=== PATIENT | female | born 1935 | race Caucasian/White ===

== ENCOUNTER 2022-04-19 17:10 | Emergency (ER) | payer OTHER ==
[2022-04-19 17:25] VITALS: BP 105/54; PULSE 77; RESP 20; TEMP 97.8; BMI 21.6
[2022-04-19] MEDS ORDERED: SODIUM CHLORIDE 0.9% 500 ML INFUS.BAG IV ONE (18:31)
[2022-04-19 18:48] LABS: BASO % 0.3 % (0-2.0); EOS % 1.5 % (0-4.5); HEMOGLOBIN 9.9 GM/dL (10.7-15.3); LYMPH % 21.6 % (8-40); MCH 28.9 pg (25.7-33.7); MCHC 32.8 g/dl (32.0-36.0); MEAN PLT VOLUME 7.6 fl (7.5-11.1); MONO % 10.5 % (3.8-10.2); NEUT % 66.1 % (42.8-82.8); PLATELET COUNT 302 10^3/uL (134-434); RBC 3.42 M/mm3 (3.60-5.2); WHITE BLOOD COUNT 9.4 K/mm3 (4.0-10.0)
[2022-04-19 18:55] LABS: INR 1.28 (0.83-1.09); PROTHROMBIN TIME (PATIENT) 14.8 SEC (9.7-13.0)
[2022-04-19 18:58] LABS: ACTIVATED PTT 31.5 SECONDS (25.2-36.5)
[2022-04-19 19:08] LABS: ALBUMIN 2.4 g/dl (3.4-5.0); BLOOD UREA NITROGEN 19.8 mg/dL (7-18); CALCIUM 8.2 mg/dL (8.5-10.1); MAGNESIUM 2.2 mg/dL (1.8-2.4)
[2022-04-19 19:12] LABS: CREATININE 0.7 mg/dL (0.55-1.3)
[2022-04-19 19:13] LABS: BILIRUBIN,TOTAL 0.3 mg/dL (0.2-1); TOT PROT 5.7 g/dl (6.4-8.2)
== END 2022-04-19 22:36 | disposition home or self-care (01) ==
LOC: JER 17:10
DX: S09.90XA Unspecified injury of head, initial encounter (principal); W01.0XXA Fall on same level from slipping, tripping and stumbling without subsequent striking against object, initial encounter
CPT/HCPCS: 36415; 70450-TC; 71045-TC-FY; 72125-TC; 72170-TC-FY; 80053; 83735; 84484; 85025; 85610; 85730; 93005; 93010; 99285-25